=== PATIENT | female | born 1965 | race Caucasian/White ===

== ENCOUNTER 2019-04-06 10:09 | Emergency (ER) | payer MEDICAID ==
[2019-04-06 10:35] LABS: URINE SOURCE CLEAN C
[2019-04-06 10:44] LABS: URINE BILIRUBIN NEGATIVE (NEGATIVE); URINE BLOOD SMALL (NEGATIVE); URINE GLUCOSE (UA) NEGATIVE (NEGATIVE); URINE KETONE NEGATIVE (NEGATIVE); URINE LEUKOCYTE ESTERASE LARGE (NEGATIVE); URINE MICROSCOPIC INDICATED? YES; URINE NITRATE NEGATIVE (NEGATIVE); URINE PROTEIN NEGATIVE (NEGATIVE)
[2019-04-06 10:50] LABS: URINE CLARITY SLIGHTLY HAZY (CLEAR); URINE COLOR YELLOW
[2019-04-06 10:51] LABS: URINE BACTERIA FEW /hpf (NONE SEEN); URINE EPITHELIAL CELLS FEW /lpf (FEW); URINE WBC 25-50 /hpf (0-5)
--- NOTE | 2019-04-06 11:44 | ED Physician Chart ---
ED Chief Complaint/HPI - Patient Information Date Seen:: 04/06/19 Time Seen:: 10:15 Chief Complaint:: Dysuria History of Present Illness:: onset x 3 days of dysuria and fever; no report of/pt denies trauma, H/As, S/T, E /As, neck pain, cough, C/P, SOB, Abd. 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 Allergies:: Allergies Allergy/AdvReac Type Severity Reaction Status Date / Time No Known Allergies Allergy Verified 04/06/19 10:15 Vitals:: Vital Signs - 8 hr 04/06/19 04/06/19 10:17 11:30 Temp 98.2 F 97.8 F HR 72 72 RR 18 16 BP 135/97 131/68 O2 Sat % 98 99 Historian:: Patient Review:: Nurse's Note Reviewed, Old Chart Reviewed ED Review of Systems - Review of Systems General/Constitutional: No fever, No chills, No weight loss, No weakness, No diaphoresis, No edema, No loss of appetite Skin: No skin lesions, No rash, No bruising Head: No headache, No light-headedness Eyes: No loss of vision, No pain, No diplopia ENT: No earache, No nasal drainage, No sore throat, No tinnitus Neck: No neck pain, No swelling, No thyromegaly, No stiffness, No mass noted Cardio Vascular: No chest pain, No palpitations, No PND, No orthopnea, No edema Pulmonary: No SOB, No cough, No sputum, No wheezing GI: No nausea, No vomiting, No diarrhea, No pain, No melena, No hematochezia, No constipation, No hematemesis G/U: Dysuria, No frequency, No hematuria, No nacturia Paper Tube Cutter: No vaginal discharge, No abnormal vaginal bleed, No contraction Musculoskeletal: No bone or joint pain, No back pain, No muscle pain Endocrine: No polyuria, No polydipsia Psychiatric: No prior psych history, No depression, No anxiety, No suicidal ideation, No homicidal ideation, No auditory hallucination, No visual hallucination Hematopoietic: No bruising, No lymphadenopathy Allergic/Immuno: No urticaria, No angioedema Neurological: No syncope, No focal symptoms, No weakness, No paresthesia, No headache, No seizure, No dizziness, No confusion, No vertigo ED Past Medical History - Past Medical History Obtainable: Yes Past Medical History: No significant medical hx Family History: HTN Social History: Non Smoker, No Alcohol, No Drug Use, Surgical History: None Psychiatricy History: None Medication: Reviewed Family Medical History - Family Member Mother History Unknown: Yes ED Physical Exam - Physical Examination General/Constitutional: Awake, Well-developed, well-nourished, Alert, No distress, GCS 15, Non-toxic appearing, Ambulatory Head: Atraumatic Eyes: Lids, conjuctiva normal, PERRL, EOMI Skin: Nl inspection, No rash, No skin lesions, No ecchymosis, Well hydrated, No lymphadenopathy ENMT: External ears, nose nl, TM canals nl, Nasal exam nl, Lips, teeth, gums nl , Oropharynx nl, Tonsils nl Neck: Nontender, Full ROM w/o pain, No JVD, No nuchal rigidity, No bruit, No mass, No stridor Other Neck comments:: supple; no meningeal signs; no cervical tenderness; no bruits Respiratory: Nl effort/Exclusion, Clear to Auscultation, No Wheeze/Rhonchi/Rales Cardio Vascular: RRR, No murmur, gallop, rubs, NL S1 S2, Carotid/Femoral/Distal pulses equal bilaterally GI: No tenderness/rebounding/guarding, No organomegaly, No hernia, Normal BS's, Nondistended, No mass/bruits, No McBurney tenderness, Rectum exam nl Other GI comments:: no pulsatile masses : No CVA tenderness Extremities: No tenderness or effusion, Full ROM, normal strength in all extremities, No edema, Normal digits & nails Neuro/Psych: Alert/oriented, DTR's symmetric, Normal sensory exam, Normal motor strength, Judgement/insight normal, Mood normal, Normal gait, No focal deficits Other Neuro/Psych comments:: no focal signs Misc: Normal back, No paraspinal tenderness ED Labs/Radiology/EKG Results - Lab Results Results: Laboratory Tests 04/06/19 04/06/19 10:15 10:15 Urine Source CLEAN C Urine Color YELLOW Urine Clarity SLIGHTLY HAZY Urine pH 7.0 Ur Specific [place] 1.010 Urine Protein NEGATIVE Urine Glucose (UA) NEGATIVE Urine Ketones NEGATIVE Urine Blood SMALL H Urine Nitrate NEGATIVE Urine Bilirubin NEGATIVE Urine Urobilinogen 1.0 Ur Leukocyte Esterase LARGE H Urine RBC 5-10 H Urine WBC 25-50 H Ur Epithelial Cells FEW Urine Bacteria FEW Urine Test NEGATIVE Comments:: Reviewed ED Septic Shock - . Is Septic Shock (SBP<90, OR Lactate>4 mmol\L) present?: No - <6hrs of presentation: Vital Signs: Vital Signs - 8 hr 04/06/19 04/06/19 10:17 11:30 Temp 98.2 F 97.8 F HR 72 72 RR 18 16 BP 135/97 131/68 O2 Sat % 98 99 ED Reassessment (Disposition) - Reassessment Reassessment:: pt tolerated po fluids well in ER; pt is asymptomatic upon discharge Reassessment Condition:: Improved - Diagnosis Diagnosis:: Dysuria; Hematuria; Fever; Cystitis; Nephrolithiasis; UTI: Hypertension - Aftercare/Follow up Instructions Aftercare/Follow-Up Instructions:: Counseled pt regarding lab results/diagnosis & need follow up, Refer to Discharge Instructions, Counseled pt & family regarding lab results/diagnosis & need follow up Medication Prescribed:: Rx: Macrobid 100mg po bid x 10 days; Tylenol 500mg po qid prn fever/pain; Urine Strainer: Strain all Urine; No added Salt Diet; encourage fluids especially citric acid juices; take medications as prescribed; Have Blood Pressure re- checked in one day by PMD - Patient Disposition Discharge/Transfer:: Home Condition at Disposition:: Stable, Improved (RTER prn if existing s/s reoccur and/or get worse and/or any other new s/s occur; ACIs given for all above Dx; Refer to Urologist/Electric Bath Attendant LOUANN; F/U with PMD in one day or prn; RTER prn if concerned)
== END 2019-04-06 11:45 | disposition home or self-care (01) ==
LOC: ER 10:09
DX: N30.91 Cystitis, unspecified with hematuria (principal); N20.0 Calculus of kidney; I10 Essential (primary) hypertension
CPT/HCPCS: 81001-TC; 81025-TC; 87086-90; Z7502

== ENCOUNTER 2019-04-15 10:04 | Emergency (ER) | payer MEDICAID ==
[2019-04-15] MEDS ORDERED: EPINEPHRine HCL 1 mg/mL 1mL Amp SUBQ STA (10:19)
[2019-04-15] MEDS ORDERED: EPINEPHRine HCL 1 mg/mL 1mL Amp ONE (10:24)
--- NOTE | 2019-04-15 10:25 | ED Physician Chart ---
ED Chief Complaint/HPI - Patient Information Date Seen:: 04/15/19 Time Seen:: 10:10 Chief Complaint:: pruritic rash History of Present Illness:: Patient developed a pruritic rash 6 hours ago. No throat swelling or difficulty breathing. She has been on Macrobid for urinary tract infection and has 4 capsules remaining. Allergies:: Allergies Allergy/AdvReac Type Severity Reaction Status Date / Time No Known Allergies Allergy Verified 04/06/19 10:15 Historian:: Patient Review:: Nurse's Note Reviewed ED Review of Systems - Review of Systems General/Constitutional: No fever, No chills Skin: No skin lesions Head: No headache Eyes: No loss of vision ENT: No earache Neck: No neck pain, No swelling Cardio Vascular: No chest pain Pulmonary: No SOB, No cough, No wheezing GI: No nausea, No vomiting, No diarrhea G/U: No dysuria Musculoskeletal: No bone or joint pain Endocrine: No polyuria Psychiatric: No prior psych history, No depression, No anxiety Hematopoietic: No bruising Allergic/Immuno: No urticaria Neurological: No syncope, No focal symptoms, No weakness ED Past Medical History - Past Medical History Past Medical History: Other (HIV positive) Family History: HTN Social History: Non Smoker, No Alcohol Surgical History: , other (right renal for calculus) Psychiatricy History: None Medication: Reviewed Family Medical History - Family Member Mother History Unknown: Yes ED Physical Exam - Physical Examination General/Constitutional: Awake, Well-developed, well-nourished, Alert, No distress Head: Atraumatic Eyes: Lids, conjuctiva normal, PERRL Other Skin comments:: Large blotches of erythema ENMT: External ears, nose nl, TM canals nl, Nasal exam nl, Lips, teeth, gums nl , Oropharynx nl, Tonsils nl Neck: No nuchal rigidity Respiratory: Nl effort/Exclusion Cardio Vascular: RRR GI: No tenderness/rebounding/guarding, No organomegaly, No hernia Extremities: No edema Neuro/Psych: No focal deficits ED Labs/Radiology/EKG Results - Lab Results Results: Laboratory Results Urine Color YELLOW 04/15/19 10:47 Urine Clarity CLEAR (CLEAR) 04/15/19 10:47 Urine pH 7.0 (4.6 - 8.0) 04/15/19 10:47 Ur Specific [place] 1.015 (1.005-1.030) 04/15/19 10:47 Urine Protein NEGATIVE mg/dL (NEGATIVE) 04/15/19 10:47 Urine Glucose (UA) NEGATIVE mg/dL (NEGATIVE) 04/15/19 10:47 Urine Ketones NEGATIVE mg/dL (NEGATIVE) 04/15/19 10:47 Urine Blood NEGATIVE (NEGATIVE) 04/15/19 10:47 Urine Nitrate NEGATIVE (NEGATIVE) 04/15/19 10:47 Urine Bilirubin NEGATIVE (NEGATIVE) 04/15/19 10:47 Urine Urobilinogen 0.2 E.U./dL (0.2 - 1.0) 04/15/19 10:47 Ur Leukocyte Esterase NEGATIVE (NEGATIVE) 04/15/19 10:47 ED Assessment - Assessment General Assessment: At 1122 patient's rash was gone and she was noted to be resting comfortably. Patient no longer has a urinary tract infection so she was told to discontinue the Macrobid which may be causing the rash. Atarax 25 mg #20 to take 1 4 times a day as necessary for recurrence of the rash. ED Septic Shock - . Is Septic Shock (SBP<90, OR Lactate>4 mmol\L) present?: No ED Reassessment (Disposition) - Reassessment Reassessment Condition:: Improved - Diagnosis Diagnosis:: Allergic reaction; history of HIV positive - Aftercare/Follow up Instructions Aftercare/Follow-Up Instructions:: Refer to Discharge Instructions - Patient Disposition Discharge/Transfer:: Home Condition at Disposition:: Stable, Improved
[2019-04-15 10:56] LABS: URINE SOURCE MIDSTREAM
[2019-04-15 11:09] LABS: URINE BILIRUBIN NEGATIVE (NEGATIVE); URINE BLOOD NEGATIVE (NEGATIVE); URINE GLUCOSE (UA) NEGATIVE (NEGATIVE); URINE KETONE NEGATIVE (NEGATIVE); URINE LEUKOCYTE ESTERASE NEGATIVE (NEGATIVE); URINE NITRATE NEGATIVE (NEGATIVE); URINE PROTEIN NEGATIVE (NEGATIVE); URINE UROBILINOGEN 0.2 E.U./dL (0.2 - 1.0)
[2019-04-15 11:16] LABS: URINE CLARITY CLEAR (CLEAR); URINE COLOR YELLOW; URINE MICROSCOPIC INDICATED? YES
[2019-04-15 11:21] LABS: URINE BACTERIA FEW /hpf (NONE SEEN); URINE EPITHELIAL CELLS OCCASIONAL /lpf (FEW); URINE RBC NONE SEEN /hpf (0-5); URINE WBC 0-2 /hpf (0-5)
== END 2019-04-15 11:30 | disposition home or self-care (01) ==
LOC: ER 10:04
DX: T78.40XA Allergy, unspecified, initial encounter (principal); Z98.890 Other specified postprocedural states; X58.XXXA Exposure to other specified factors, initial encounter
CPT/HCPCS: 99283; 96372; 81001; J0171; Z7502